=== PATIENT | male | born 1995 | race African-American/Black ===

== ENCOUNTER 2023-05-28 07:53 | Emergency (ER) | payer SELFPAY ==
[~2023-05-28] VITALS: Ht 177.8 cm; Wt 99.0 kg
[2023-05-28 08:01] VITALS: TEMP 100.1; O2SAT 97
[2023-05-28 08:30] VITALS: BP 128/74; PULSE 89; RESP 16
[2023-05-28] MEDS: IBUPROFEN 600MG TABLET PO ONE (08:30)
== END 2023-05-28 08:58 | disposition home or self-care (01) ==
LOC: ER 08:40
DX: B34.8 Other viral infections of unspecified site (principal); R09.81 Nasal congestion; M79.10 Myalgia, unspecified site; Z98.890 Other specified postprocedural states; Z20.822 Contact with and (suspected) exposure to COVID-19
CPT/HCPCS: 99283; 87426; C9803

== ENCOUNTER 2023-10-24 01:52 | Emergency (ER) | payer OTHER ==
[~2023-10-24] VITALS: Ht 188 cm; Wt 105.0 kg
[2023-10-24 02:10] VITALS: O2SAT 98
[2023-10-24] MEDS: HYDROCODONE/ACETAMINOPHEN 5/325MG TABLET PO STA (06:25)
[2023-10-24] MEDS: ONDANSETRON 4MG ODT PO STA (06:25)
[2023-10-24 06:41] LABS: BASOPHILS % 0.3 % (0.0-2.0); EOSINOPHILS % 0.3 % (0.0-5.0); HEMATOCRIT. 43.4 % (42.0-52.0); HEMOGLOBIN. 14.8 g/dL (14.0-18.0); MEAN CORPUSCULAR VOLUME 88.2 fL (80.0-94.0); MEAN PLATELET VOLUME 9.2 fl (7.4-10.4); NEUTROPHILS % 75.4 % (40.0-76.0); PLATELET 252 x1000/uL (130-400); RED BLOOD CELL COUNT 4.92 mill/uL (4.7-6.1); RED CELL DISTRIBUTION WIDTH 13.3 % (11.6-14.6); WHITE BLOOD COUNT 9.3 x1000/uL (4.5-11.0)
[2023-10-24 06:59] LABS: ALANINE AMINOTRANSFERASE 74 IU/L (10-49); ALBUMIN 4.8 g/dL (3.2-4.8); ASPARTATE AMINOTRANSFERASE 40 IU/L (<34); BILIRUBIN TOTAL 0.7 mg/dL (0.1-1.0); CALCIUM 9.3 mg/dL (8.7-10.4); CARBON DIOXIDE 26 mEq/L (21-32); CHLORIDE 109 mEq/L (98-107); GLUCOSE 104 mg/dL (70-105); PROTEIN TOTAL 8.2 g/dL (6.0-8.3); SODIUM 139 mEq/L (136-145); UREA NITROGEN BLOOD 13 mg/dL (9-23)
[2023-10-24 08:03] VITALS: BP 109/83; PULSE 72; RESP 16; TEMP 97.8
[2023-10-24 08:15] LABS: CLARITY URINE CLEAR (CLEAR); COLOR URINE YELLOW (YELLOW); GLUCOSE URINE NEGATIVE (NEGATIVE); KETONES URINE NEGATIVE (NEGATIVE); LEUKOCYTE ESTERASE URINE NEGATIVE (NEGATIVE); NITRITE URINE NEGATIVE (NEGATIVE); OCCULT BLOOD URINE 1+ (NEGATIVE); PROTEIN URINE NEGATIVE (NEGATIVE); SPECIFIC GRAVITY URINE 1.022 (1.005-1.030)
[2023-10-24] MEDS ORDERED: TOPUD PO (08:30)
[2023-10-24 08:43] LABS: BACTERIA URINE NONE SEEN; SQUAMOUS EPITHELIAL CELL URINE RARE /lpf (RARE/1+); WBC URINE 0-2 /hpf (0-2); YEAST URINE NONE SEEN
== END 2023-10-24 08:56 | disposition home or self-care (01) ==
LOC: ER 01:52
DX: R10.9 Unspecified abdominal pain (principal); R11.10 Vomiting, unspecified
CPT/HCPCS: 99284; 74176; 80053; 81003; 85025; 36415; Q0162